=== PATIENT | male | born 2000 | race Caucasian/White ===

== ENCOUNTER 2024-07-01 17:15 | Emergency (ER) | payer OTHER ==
[~2024-07-01] VITALS: Ht 182.9 cm; Wt 97.8 kg
[2024-07-01] MEDS: FAMOTIDINE 20MG/2ML VIAL IVP ONE (19:40)
[2024-07-01] MEDS: methylPREDNISolone 125MG 2ML VIAL IV ONE (20:07)
[2024-07-01] MEDS: diphenhydrAMINE 50MG/ML VIAL IV ONE (20:07)
[2024-07-01] MEDS: NS 1,000 ML IV ONE (20:07)
[2024-07-01] MEDS ORDERED: PRED20TA PO (21:45)
[2024-07-01] MEDS ORDERED: BENA25CA4 PO (21:45)
[2024-07-01 21:52] VITALS: BP 132/71; TEMP 98; O2SAT 96
== END 2024-07-01 21:55 | disposition home or self-care (01) ==
LOC: M ED 17:15
DX: L50.9 Urticaria, unspecified (principal); F17.220 Nicotine dependence, chewing tobacco, uncomplicated; Z91.010 Allergy to peanuts; Z79.52 Long term (current) use of systemic steroids
CPT/HCPCS: 96361; 96374; 96375; 99284; J1200; J2919; S0028